=== PATIENT | female | born 1955 | race Caucasian/White ===

== ENCOUNTER 2018-08-04 17:41 | Outpatient (CLI) | payer OTHER ==
--- NOTE | 2018-08-05 11:18 | MRI Report ---
Reason: ONGOING MEDIAL, LATERAL, AND PATELLAR PAIN SINCE M Procedure Date: 08/04/2018 Accession Number: [id number] / [id number] Procedure: MRI - Knee RT W/O CPT Code: FULL RESULT: EXAM: RIGHT KNEE MRI WITHOUT CONTRAST EXAM DATE: 08/04/2018 06:23 PM. CLINICAL HISTORY: Right knee pain. COMPARISON: None. TECHNIQUE: Multiplanar, multisequence T1-weighted and fluid-sensitive sequences of the knee without contrast. Other: None. FINDINGS: Bones: No fractures or subluxations. No marrow edema. No bone lesions. Articular Cartilage: Broad areas of deep partial-thickness cartilage loss with superimposed full-thickness cartilage fissuring at the central and medial patella. The trochlear cartilage is intact. At the lateral compartment, there is deep partial-thickness cartilage loss at the central weight-bearing lateral femoral condyle in an area measuring 1 x 0.6 cm, as well as deep partial-thickness cartilage loss at the lateral tibial plateau in an area measuring 0.6 x 0.6 cm. No underlying subchondral marrow edema. At the medial compartment, there is full-thickness cartilage loss over an area measuring 1 x 1.7 cm at the far posteromedial femoral condyle with underlying subchondral cystic change and marrow edema, as well as more diffuse shallow partial-thickness cartilage loss at the weight-bearing medial femoral condyle and medial tibial plateau. Medial Meniscus: The medial meniscus is intact. Lateral Meniscus: The lateral meniscus is intact. Cruciate Ligaments: The anterior and posterior cruciate ligaments are intact. Collateral Ligaments: The medial collateral and lateral collateral ligamentous structures are intact. Tendons: The quadriceps, patellar, semimembranosus, and popliteus tendons are unremarkable. Musculature: No edema or fatty atrophy. Other: No effusion. No popliteal cyst. No loose bodies. The medial and lateral retinacula are intact. The subcutaneous tissues and fat pads are unremarkable. IMPRESSION: 1. Normal cruciate and collateral ligaments. 2. Normal menisci. 3. Right knee osteoarthrosis, with a 1 x 1.7 cm area of full-thickness cartilage loss at the far posterior medial femoral condyle and underlying subchondral cystic change and marrow edema, focal deep partial-thickness cartilage loss at the weight-bearing lateral femoral condyle and tibial plateau, and more diffuse partial-thickness cartilage loss at the weight-bearing medial compartment and patella. There is also superimposed full-thickness fissuring and subchondral edema at the patella. [facility] MUSCULOSKELETAL RADIOLOGY SECTION
== END 2018-08-04 17:42 | disposition home or self-care (01) ==
LOC: DI 17:41
PROVIDERS: ATTEND Nurse Practitioner Family
DX: M17.11 Unilateral primary osteoarthritis, right knee (principal); M23.91 Unspecified internal derangement of right knee